=== PATIENT | female | born 1960 | race Caucasian/White ===

== ENCOUNTER → 2024-04-10 10:49 | Outpatient (REF) | payer OTHER, SELFPAY | LOC: HWWDC 10:49 | PROVIDERS: ATTENDING PHYSICIAN Obstetrics & Gynecology Gynecology; FAMILY PHYSICIAN Family Medicine | DX: Z12.31 Encounter for screening mammogram for malignant neoplasm of breast (principal) | CPT/HCPCS: 77063; 77067 ==

== ENCOUNTER → 2024-04-25 08:11 | Outpatient (REF) | payer OTHER, SELFPAY | LOC: HWRAD 08:11 | PROVIDERS: ATTENDING PHYSICIAN Family Medicine | DX: M25.572 Pain in left ankle and joints of left foot (principal) | CPT/HCPCS: 73610; 73630 ==

== ENCOUNTER 2025-03-16 06:10 | Day surgery (SDC) | payer OTHER, SELFPAY | END 2025-03-16 08:53 | disposition home or self-care (01) | LOC: GI 06:10 | PROVIDERS: ATTENDING PHYSICIAN Internal Medicine | DX: Z12.11 Encounter for screening for malignant neoplasm of colon (principal); K64.4 Residual hemorrhoidal skin tags; K64.8 Other hemorrhoids; K57.30 Diverticulosis of large intestine without perforation or abscess without bleeding; K51.20 Ulcerative (chronic) proctitis without complications; K62.89 Other specified diseases of anus and rectum; D12.0 Benign neoplasm of cecum; K63.5 Polyp of colon; Z80.0 Family history of malignant neoplasm of digestive organs | CPT/HCPCS: 45385; 45380; 88305 ==

== ENCOUNTER → 2025-04-30 09:47 | Outpatient (REF) | payer OTHER, SELFPAY | LOC: HWWDC 09:47 | PROVIDERS: ATTENDING PHYSICIAN Obstetrics & Gynecology Gynecology; FAMILY PHYSICIAN Family Medicine | DX: Z12.31 Encounter for screening mammogram for malignant neoplasm of breast (principal) | CPT/HCPCS: 77063; 77067 ==